=== PATIENT | male | born 1985 | race American Indian/Alaskan Native ===

== ENCOUNTER 2018-03-03 15:29 | Emergency (ER) | payer OTHER, MEDICAID ==
--- NOTE | 2018-03-03 15:43 | EDM.PDOC ---
ED HPI GENERAL MEDICAL PROBLEM - General Stated Complaint: [id number] LUMP ON CHEST/STOMACH Time Seen by Provider: 03/03/18 15:32 Source of Information: Reports: Patient History Limitations: Reports: No Limitations - History of Present Illness INITIAL COMMENTS - FREE TEXT/NARRATIVE: This patient comes emergency department today with complaints of diarrhea and upset stomach. The patient was started on clindamycin 4 times a day on Saturday by at [facility] because his shoulders have been sore. He woke up on Saturday morning and his shoulders were sore when he picked them up and move them over his head so he was started on clindamycin 4 times a day. He is unsure why they started him on clindamycin for his shoulder aches. He has not had any fever or chills. He has not had any sores lesions abscess or other concerns. No hematuria dysuria or urinary frequency. No fever no chills. No cough no congestion no flank pain. He has had good oral intake and he is urinating a normal amount. He can keep food down quite well. His abdomen is generalized tenderness primarily when he has diarrhea. He was told by his provider and S that he had a large amount of lymphadenopathy on his back and his groin which is possibly why he was put on clindamycin. Low prior to that he did not have any fever chills weakness or any signs of infection. - Related Data Allergies Allergy/AdvReac Type Severity Reaction Status Date / Time No Known Allergies Allergy Verified 04/22/14 15:51 Home Meds: Home Meds . [No Known Home Meds] 04/22/14 [History] Past Medical History - Past Health History Medical/Surgical History: Denies Medical/Surgical History ED ROS GENERAL - Review of Systems Review Of Systems: ROS reveals no pertinent complaints other than HPI. ED EXAM, SKIN/RASH Exam: See Below Exam Limited By: No Limitations General Appearance: Alert, WD/WN, No Apparent Distress Eye Exam: Bilateral Eye: Normal Inspection Ears: Normal External Exam, Normal Canal Nose: Normal Inspection, Normal Mucosa Throat/Mouth: Normal Inspection Head: Atraumatic, Normocephalic Neck: Normal Inspection, Supple, Non-Tender, Full Range of Motion. No: Lymphadenopathy (L), Lymphadenopathy (R) Respiratory/Chest: No Respiratory Distress, Lungs Clear, Normal Breath Sounds, No Accessory Muscle Use Cardiovascular: Normal Peripheral Pulses, Regular Rate, Rhythm GI/Abdominal: Normal Bowel Sounds, Soft, Non-Tender (Male) Exam: Normal Inspection. No: Hernia, Inguinal Lymphadenopathy, Scrotum Tenderness (L), Scrotum Tenderness (R) Rectal (Males) Exam: Deferred Back Exam: Normal Inspection, Full Range of Motion, Other (I do not appreciate any posterior lymphadenopathy on his back.). No: CVA Tenderness (L), CVA Tenderness (R), Decreased Range of Motion, Muscle Spasm, Paraspinal Tenderness, Vertebral Tenderness Extremities: Normal Inspection, Normal Range of Motion, Non-Tender, Normal Capillary Refill Neurological: Alert, Oriented, CN II-XII Intact Psychiatric: Normal Affect, Normal Mood Skin: Warm, Dry, Intact, Normal Color Lymphatic: No Adenopathy Course - Re-Assessments/Exams Free Text/Narrative Re-Assessment/Exam: 03/03/18 15:55 I did spend a rather long time visiting with this patient that his generalized abdominal cramping with his diarrhea is most likely indicative of the medication clindamycin that was recently started. Feel that he could stop his clindamycin as I'm really unsure of what it was started for. His symptomatology really sounds more like muscle aches cramps in his shoulder that only happen when he moves. I wonder if this is not more muskuloskelatal related or PMR although this has only been going on for 3-4 days and does not really fit the clinical picture of PMR. He mainly is here for diarrhea. If he is not improving further evaluation at the primary care clinic for further evaluation. 03/03/18 16:00 The patient is comfortable with this plan and his questions were answered. Departure - Departure Time of Disposition: 15:44 Disposition: Home, Self-Care 01 Clinical Impression: Diarrhea due to drug - Discharge Information *PRESCRIPTION DRUG MONITORING PROGRAM REVIEWED*: Yes *COPY OF PRESCRIPTION DRUG MONITORING REPORT IN PATIENT ELADIO: No Instructions: Diarrhea, Adult, [id number] Additional Instructions: I would stop the clindamycin as there is known infection that has been reported. Increase fluid intake over the next few days especially electrolyte containing materials such as Gatorade and or Powerade. No dairy products until diarrhea has resolved. Ibuprofen for sore shoulders. Return to the ED if new or worsening symptoms. Follow up with primary care provider in the next 4-6 days if not improving sooner if worse. - Assessment/Plan Assessment:: diarrhea most likely from the initiation of clindamycin shoulder aches Plan: I would stop the clindamycin as there is known infection that has been reported. Increase fluid intake over the next few days especially electrolyte containing materials such as Gatorade and or Powerade. No dairy products until diarrhea has resolved. Ibuprofen for sore shoulders. Return to the ED if new or worsening symptoms. Follow up with primary care provider in the next 4-6 days if not improving sooner if worse.
== END 2018-03-03 16:00 | disposition home or self-care (01) ==
LOC: DL.ED 15:29
DX: K52.1 Toxic gastroenteritis and colitis (principal); T36.8X5A Adverse effect of other systemic antibiotics, initial encounter
CPT/HCPCS: 99282; 99283